=== PATIENT | female | born 2000 | race Asian ===

== ENCOUNTER → 2025-05-09 09:55 | Outpatient (REF) | payer OTHER, SELFPAY ==
[2025-05-10 19:34] LABS: Hepatitis B Surface Antibody Positive
[2025-05-11 14:00] LABS: Quantiferon Mitogen minus NIL 9.94 IU/mL; Quantiferon NIL 0.06 IU/mL; Quantiferon Plus TB1 minus NIL 0.03 IU/mL (<=0.34); Quantiferon Plus TB2 minus NIL 0.02 IU/mL (<=0.34); Quantiferon TB Gold Plus Negative (Negative)
== END ==
LOC: OHS 09:55
PROVIDERS: ATTENDING PHYSICIAN Nurse Practitioner Family
DX: Z23 Encounter for immunization (principal)
CPT/HCPCS: 36415; 86480; 86706